=== PATIENT | female | born 1970 | race Caucasian/White ===

== ENCOUNTER → 2017-02-02 | Outpatient (CLI) | payer OTHER ==
[2016-01-02 21:20] VITALS: BP 118/75
[~2017-02-02] MED LIST: AMIT50TA PO; CYCL5TAB PO; GABA-585 PO; GABA-586 PO; HYDR-2758 PO; HYDR-971 PO; MELO15TA23 PO; METR500T PO; ONDA4TAB10 PO; OXYC-323 PO; PRED20TA PO; RANI150T6 PO; TOPI100T8 PO; TRAM50TA PO
--- NOTE | 2017-02-02 16:00 | PAIN ---
DATE OF SERVICE: 02/02/2017 DIAGNOSES: Lumbar radiculopathy with lumbar degenerative disk disease. HISTORY OF PRESENT ILLNESS: The patient is a 46-year-old female who returns for followup status post lumbar epidural steroid injections, last seen in 08/2015. The patient did very well with near 100% improvement but only lasting for about a week or so. She had 2 of these injections a year ago in summer with good results again only lasting a short period of time. The patient reports this is the time she has had significant pain in the low back, mid back, upper back, shoulders, neck, arms, hips, posterior gluteus, radiating into posterior thighs and calves, anterior thighs and calves as well bilaterally and worse on the left than the right. The patient reports pain is a 10 on a scale of 10 at its worst, 9 on average and a 9 today. The patient reports it is sharp, tight, shooting, stabbing, severe, constant, becoming more unbearable. The patient is seeing a mold stacker in about 1 month at for diagnostics regarding rheumatoid arthritis and fibromyalgia pains. The patient has been taking gabapentin, but only at 200 mg 3 times a day. The patient reports no new motor or sensory deficits, no new bowel or bladder incontinence, but awakens her from sleep sporadically, not every night, worse with standing, walking, changing positions, but the pain moves around from the shoulders, back, neck, upper back, low back into the legs and arms and currently is worse on the left side in the mid back. The patient reports no new changes or other complaints. PAST MEDICAL HISTORY: Significant for leukemia, history of arthritis, also brain tumor with surgery in 2013. PAST SURGICAL HISTORY: Other surgeries include , cholecystectomy, blepharoplasty. The patient also had a recent removal of the skull plate about 3 months ago with very good decrease in pain and headaches. CURRENT MEDICATIONS: Include gabapentin and cyclobenzaprine. ALLERGIES: THE PATIENT IS ALLERGIC TO BACTRIM AND PENICILLIN. FAMILY HISTORY: Significant for cancer, diabetes, depression. SOCIAL HISTORY: The patient does not smoke, drinks 1-2 beers occasionally. She is , lives with her spouse, lives locally in [place], [place]. REVIEW OF SYSTEMS: Positive for those items mentioned in history of present illness, is complete, full and well documented on the patient's chart. PHYSICAL EXAMINATION: VITAL SIGNS: The patient's blood pressure is 115/85, pulse 78, respirations are 16, temperature is 98.4 degrees Fahrenheit, height is 5 feet 4-1/2 inches, weight is 222 pounds. GENERAL: The patient is awake, alert, oriented, appropriate, very pleasant demeanor. HEENT: Head shows normocephalic, atraumatic. Extraocular movements are intact, symmetrical. Oral cavity: Mucous membranes moist and pink. Dentition is intact. NECK: Shows anterior throat supple without palpable lymphadenopathy noted. Swallow reflex is symmetrical. CHEST: Shows normal with inspection. Breath sounds are clear to auscultation bilaterally. HEART: Shows S1, S2 clear. No murmurs auscultated. ABDOMEN: Soft, nontender, nondistended. No palpable organomegaly is noted. There is no rebound or guarding demonstrated. BACK: The patient's back shows spine grossly in midline. Normal appearing thoracic kyphosis and lumbar lordotic curvatures. Lumbar paraspinous musculature shows symmetrical on inspection with palpation shows some moderate tenderness bilaterally as does the upper thoracic and mid thoracic distribution, some mild tenderness in the trapezius musculature. No specific trigger points identified, just diffuse tenderness throughout the paraspinous musculature of the thoracic and the lumbar spines. The patient has good rotational motion of lumbar spine as well as extension and flexion. EXTREMITIES: Show upper extremity deep tendon reflexes 2+ in the lower extremities, 1+ in the patellar tendons. Motor exam is strong with 5/5 firewall engineer strength, biceps and triceps flexion and 5/5 dorsiflexion, extension, quadriceps and hamstring flexion and equal. Peripheral pulses are 2+ radial, 1+ posterior tibial. No peripheral edema is noted in any of the extremities. Options were discussed with the patient. The patient's old chart was reviewed as her current medication regimen updated. Current review of systems is updated today as well and we will try a Medrol Dosepak with instructions, side effects to be aware of discussed with the patient. Also encouraged the patient to increase her gabapentin to 300 mg or 400 mg as tolerated 3 times daily as this may give her better relief. She has been on higher doses by her report in the past and has had better relief with these doses. The patient was given instruction as well as side effects to be aware of with her medications. We will follow up in approximately 4 weeks or as necessary. RIKKI RAMOS MD DR: BREA/noni JOB#: [id number] / [id number]
== END | disposition home or self-care (01) ==
LOC: PNCL 09:41
PROVIDERS: ATTEND Anesthesiology
DX: M54.16 Radiculopathy, lumbar region (principal); M51.36 Other intervertebral disc degeneration, lumbar region
CPT/HCPCS: 99212